=== PATIENT | male | born 1945 | race Caucasian/White ===

== ENCOUNTER 2020-07-22 13:11 | Emergency (ER) | payer OTHER ==
[2020-07-22] MEDS ORDERED: LORazepam 2 MG/ML SDV VIAL IVPUSH STA ×2 (13:33→15:28)
[2020-07-22] MEDS ORDERED: LACTATED RINGERS SOLUTION 1000 ML INFUS.BAG IV STA (13:34)
[2020-07-22 14:11] VITALS: BP 158/92; PULSE 89; TEMP 97.9; BMI 24.5
[2020-07-22] MEDS ORDERED: LORazepam 2 MG/ML SDV VIAL ONE ×2 (14:23→15:42)
[2020-07-22 14:24] LABS: BASO % 1.2 % (0-2.0); EOS % 3.8 % (0-4.5); HEMATOCRIT 48.5 % (35.4-49); HEMOGLOBIN 16.3 GM/dl (11.7-16.9); LYMPH % 10.5 % (8-40); MCH 31.7 pg (25.7-33.7); MCHC 33.6 g/dl (32.0-35.9); MEAN CELL VOLUME 94.3 fl (80-96); NEUT % 75.5 % (42.8-82.8); PLATELET COUNT 221 K/MM3 (134-434); RBC 5.15 M/mm3 (4.00-5.60); RDW 12.6 % (11.9-15.9); WHITE BLOOD COUNT 7.4 K/mm3 (4.0-10.8)
[2020-07-22 14:32] LABS: ALBUMIN 4.6 g/dl (3.4-5.0); BILIRUBIN,TOTAL 0.7 mg/dl (0.2-1); CALCIUM 9.6 mg/dl (8.5-10); MAGNESIUM 2.2 mg/dL (1.8-2.4); POTASSIUM 4.8 mmol/L (3.5-5.1); TOT PROT 7.3 g/dl (6.4-8.2)
== END 2020-07-22 16:24 | disposition home or self-care (01) ==
LOC: FER 13:11
PROC: 3E033NZ Introduction of Analgesics, Hypnotics, Sedatives into Peripheral Vein, Percutaneous Approach (ICD-10-PCS; principal; 2020-07-22)
PROC: 3E033NZ Introduction of Analgesics, Hypnotics, Sedatives into Peripheral Vein, Percutaneous Approach (ICD-10-PCS; 2020-07-22)
DX: F41.9 Anxiety disorder, unspecified (principal); F10.10 Alcohol abuse, uncomplicated; F32.89 Other specified depressive episodes
CPT/HCPCS: 36415; 80053; 81003; 83735; 84443; 85025; 93005; 99284-25